=== PATIENT | female | born 1945 | race Two or more races ===

== ENCOUNTER 2019-02-10 09:02 | Outpatient (CLI) | payer OTHER ==
[2019-02-14] MEDS ORDERED: JANUVIA50 MG PO (16:05)
[2019-02-14] MEDS ORDERED: SYNTHROID50 MCG PO (16:06)
[2019-02-17] MEDS ORDERED: ZANTAC300 MG PO (15:47)
[2019-02-17] MEDS ORDERED: LOSARTAN POTASS50 MG PO (15:48)
[2019-02-17] MEDS ORDERED: GLUCOTROL10 MG PO (15:49)
[2019-02-17] MEDS ORDERED: LIPITO PO (15:49)
[2019-02-17] MEDS ORDERED: OMEPRAZOLE20 MG PO (15:50)
== END 2019-02-10 09:14 | disposition home or self-care (01) ==
LOC: EKG 09:02
DX: R07.89 Other chest pain (principal); I10 Essential (primary) hypertension

== ENCOUNTER 2019-02-21 05:00 | Day surgery (SDC) | payer OTHER ==
[~2019-02-21 05:00] MED LIST: GLUCOTROL10 MG PO; JANUVIA50 MG PO; LIPITO PO; LOSARTAN POTASS50 MG PO; OMEPRAZOLE20 MG PO; SYNTHROID50 MCG PO; ZANTAC300 MG PO
[2019-02-21] MEDS ORDERED: ACETAMINOPHEN-1 EAC2 PO (09:03)
[2019-02-21] MEDS ORDERED: MACROBID 100 M100 MG PO (09:03)
== END 2019-02-21 12:50 | disposition home or self-care (01) ==
LOC: CIR.AMB 05:00
DX: N81.3 Complete uterovaginal prolapse (principal)